=== PATIENT | male | born 1970 | race African-American/Black ===

== ENCOUNTER 2019-06-26 14:11 | Emergency (ER) | payer MEDICAID, OTHER ==
[~2019-06-26] VITALS: Ht 182.9 cm; Wt 170.0 kg
[2019-06-26 18:05] VITALS: BP 134/98
== END 2019-06-26 18:14 | disposition home or self-care (01) ==
LOC: ER 14:11
DX: L03.116 Cellulitis of left lower limb (principal); I10 Essential (primary) hypertension; Z85.72 Personal history of non-Hodgkin lymphomas; Z87.891 Personal history of nicotine dependence
CPT/HCPCS: 99283